=== PATIENT | female | born 1945 | race Two or more races ===

== ENCOUNTER → 2023-05-07 | Outpatient (CLI) | payer OTHER ==
[~2023-05-07] MED LIST: AZIT1POW PO; METH4PAK PO
[2023-05-07 09:26] LABS: Basophils # (auto) 0 10 ^3/uL (0-0.2); Basophils % (auto) 0.6 % (0.0-2.0); Eosinophils # (auto) 0.1 10 ^3/uL (0-0.8); Eosinophils % (auto) 2.2 % (0.0-7.0); Hematocrit 42.8 % (36.0-46.0); Hemoglobin 14.1 g/dL (12.2-16.2); Lymphocytes % (auto) 24.4 % (10.0-50.0); Mean Corpuscular Hemoglobin 30.6 pg (28.0-32.0); Mean Corpuscular Volume 92.6 fL (80.0-100.0); Monocytes # (auto) 0.3 10 ^3/uL (0-1.3); Monocytes % (auto) 8.1 % (0.0-12.0); Neutrophils # (auto) 2.6 10 ^3/uL (1.6-8.6); Neutrophils % (auto) 64.7 % (37.0-80.0); Nucleated Red Blood Cells % 0.1 %; Red Blood Cells 4.63 10^6/uL (4.0-5.20); Red Cell Distribution Width 15.5 % (11.8-14.3)
[2023-05-07 10:06] LABS: Alanine Aminotransferase 14 U/L (7-40); Alkaline Phosphatase 81 U/L (46-116); Aspartate Aminotransferase 13 U/L (13-40); BUN/Creatinine Ratio 15.5 (10.0-20.0); Blood Urea Nitrogen 13 mg/dL (9-23); CRP High Sensitivity 0.04 mg/dL (<1.0); Calcium 9.8 mg/dL (8.5-10.1); Carbon Dioxide 31 mmol/L (20-30); Glucose 99 mg/dL (74-106); LDL Cholesterol 119 mg/dL (< 100); Triglycerides 118 mg/dL (< 150)
[2023-05-07 10:07] LABS: Albumin 4.5 g/dL (3.2-4.8); Cholesterol 178 mg/dL (< 200); HDL Cholesterol 51 mg/dL (40-59)
[2023-05-07 10:17] LABS: Erythrocyte Sedimentation Rate 7 mm/hr (0-20)
[2023-05-07 10:42] LABS: Anion Gap 5 (5-15); Chloride 109 mmol/L (98-107); Sodium 145 mmol/L (136-145)
== END | disposition home or self-care (01) ==
LOC: LAB 09:04
PROVIDERS: ATTEND Internal Medicine
DX: I10 Essential (primary) hypertension (principal); R13.11 Dysphagia, oral phase; E03.9 Hypothyroidism, unspecified; M34.1 CR(E)ST syndrome; M05.79 Rheumatoid arthritis with rheumatoid factor of multiple sites without organ or systems involvement; Z79.899 Other long term (current) drug therapy
CPT/HCPCS: 36415; 80053; 80061; 84443; 85025; 85652; 86141

== ENCOUNTER → 2023-10-14 | Outpatient (CLI) | payer OTHER ==
[2023-10-14 10:01] LABS: Basophils # (auto) 0 10 ^3/uL (0-0.2); Basophils % (auto) 0.6 % (0.0-2.0); Eosinophils # (auto) 0.1 10 ^3/uL (0-0.8); Eosinophils % (auto) 2.4 % (0.0-7.0); Hematocrit 41.8 % (36.0-46.0); Hemoglobin 13.6 g/dL (12.2-16.2); Lymphocytes % (auto) 23.4 % (10.0-50.0); Mean Corpuscular Hemoglobin 29.6 pg (28.0-32.0); Mean Corpuscular Hgb Conc. 32.5 g/dL (32.0-36.0); Mean Corpuscular Volume 90.9 fL (80.0-100.0); Monocytes # (auto) 0.4 10 ^3/uL (0-1.3); Monocytes % (auto) 9.9 % (0.0-12.0); Neutrophils # (auto) 2.7 10 ^3/uL (1.6-8.6); Neutrophils % (auto) 63.7 % (37.0-80.0); Nucleated Red Blood Cells % 0.2 %; Red Cell Distribution Width 15.4 % (11.8-14.3); White Blood Cell 4.2 10^3/uL (4.4-10.8)
[2023-10-14 10:22] LABS: Alanine Aminotransferase 15 U/L (7-40); Albumin 4.3 g/dL (3.2-4.8); Alkaline Phosphatase 94 U/L (46-116); Anion Gap 6 (5-15); Aspartate Aminotransferase 17 U/L (13-40); BUN/Creatinine Ratio 12.5 (10.0-20.0); Blood Urea Nitrogen 10 mg/dL (9-23); CRP High Sensitivity 0.06 mg/dL (<1.0); Calcium 9.7 mg/dL (8.5-10.1); Carbon Dioxide 30 mmol/L (20-30); Chloride 109 mmol/L (98-107); Glucose 86 mg/dL (74-106); Potassium 3.8 mmol/L (3.5-5.1); Sodium 145 mmol/L (136-145)
[2023-10-14 10:23] LABS: Bilirubin, Total 0.8 mg/dL (0.2-1.0); Total Protein 6.7 g/dL (5.7-8.2)
[2023-10-14 10:50] LABS: Erythrocyte Sedimentation Rate 8 mm/hr (0-20)
== END | disposition home or self-care (01) ==
LOC: LAB 09:24
PROVIDERS: ATTEND Internal Medicine Rheumatology
DX: M05.29 Rheumatoid vasculitis with rheumatoid arthritis of multiple sites (principal); Z79.899 Other long term (current) drug therapy
CPT/HCPCS: 36415; 80053; 85025; 85652; 86141

== ENCOUNTER → 2023-10-17 | Outpatient (CLI) | payer OTHER ==
[2023-10-17 14:15] LABS: Urine Bacteria NONE SEEN /hpf (None Seen); Urine Blood 2+ /uL (Negative); Urine Clarity CLOUDY (Clear); Urine Color Brown (Yellow); Urine Hyaline Cast FEW /lpf (0 - 2); Urine Mucus FEW (None Seen); Urine Protein, UAD 2+ (Negative); Urine Specific Gravity 1.017 (1.001-1.035); Urine WBC 574 /hpf (0 - 5); Urine WBC Clumps PRESENT /hpf (None Seen); Urine pH 5.5 (5.0-8.0)
== END | disposition home or self-care (01) ==
LOC: LAB 13:49
PROVIDERS: ATTEND Internal Medicine
DX: N39.0 Urinary tract infection, site not specified (principal)
CPT/HCPCS: 81001; 87086

== ENCOUNTER → 2024-01-02 | Outpatient (CLI) | payer OTHER ==
[2024-01-02 09:51] LABS: Basophils # (auto) 0 10 ^3/uL (0-0.2); Basophils % (auto) 0.7 % (0.0-2.0); Eosinophils # (auto) 0.1 10 ^3/uL (0-0.8); Eosinophils % (auto) 2.2 % (0.0-7.0); Hematocrit 41.1 % (36.0-46.0); Hemoglobin 13.3 g/dL (12.2-16.2); Lymphocytes # (auto) 1.1 10 ^3/uL (0.4-5.4); Lymphocytes % (auto) 21.8 % (10.0-50.0); Mean Corpuscular Hemoglobin 29.5 pg (28.0-32.0); Mean Corpuscular Hgb Conc. 32.3 g/dL (32.0-36.0); Mean Corpuscular Volume 91.3 fL (80.0-100.0); Monocytes # (auto) 0.4 10 ^3/uL (0-1.3); Monocytes % (auto) 8.9 % (0.0-12.0); Neutrophils # (auto) 3.3 10 ^3/uL (1.6-8.6); Neutrophils % (auto) 66.4 % (37.0-80.0); Nucleated Red Blood Cells % 0.1 %; White Blood Cell 4.9 10^3/uL (4.4-10.8)
[2024-01-02 10:07] LABS: Alanine Aminotransferase 14 U/L (7-40); Albumin 4.4 g/dL (3.2-4.8); Alkaline Phosphatase 109 U/L (46-116); Anion Gap 3 (5-15); Aspartate Aminotransferase 15 U/L (13-40); BUN/Creatinine Ratio 14.4 (10.0-20.0); Bilirubin, Total 0.9 mg/dL (0.2-1.0); Blood Urea Nitrogen 13 mg/dL (9-23); CRP High Sensitivity 0.07 mg/dL (<1.0); Calcium 9.9 mg/dL (8.5-10.1); Carbon Dioxide 31 mmol/L (20-30); Chloride 109 mmol/L (98-107); Glucose 91 mg/dL (74-106); Potassium 4.5 mmol/L (3.5-5.1); Sodium 143 mmol/L (136-145); Total Protein 6.6 g/dL (5.7-8.2)
[2024-01-02 10:35] LABS: Erythrocyte Sedimentation Rate 7 mm/hr (0-20)
== END | disposition home or self-care (01) ==
LOC: LAB 09:25
PROVIDERS: ATTEND Internal Medicine Rheumatology
DX: M05.79 Rheumatoid arthritis with rheumatoid factor of multiple sites without organ or systems involvement (principal); Z79.899 Other long term (current) drug therapy
CPT/HCPCS: 36415; 80053; 85025; 85652; 86141

== ENCOUNTER → 2024-03-27 | Outpatient (CLI) | payer OTHER ==
[2024-03-27 09:35] LABS: Basophils # (auto) 0 10 ^3/uL (0-0.2); Basophils % (auto) 0.7 % (0.0-2.0); Eosinophils # (auto) 0.1 10 ^3/uL (0-0.8); Eosinophils % (auto) 2.8 % (0.0-7.0); Hematocrit 41.4 % (36.0-46.0); Hemoglobin 13.7 g/dL (12.2-16.2); Lymphocytes % (auto) 23.5 % (10.0-50.0); Mean Corpuscular Hemoglobin 29.9 pg (28.0-32.0); Mean Corpuscular Hgb Conc. 32.9 g/dL (32.0-36.0); Mean Corpuscular Volume 90.8 fL (80.0-100.0); Monocytes # (auto) 0.5 10 ^3/uL (0-1.3); Monocytes % (auto) 10.4 % (0.0-12.0); Neutrophils # (auto) 2.7 10 ^3/uL (1.6-8.6); Neutrophils % (auto) 62.6 % (37.0-80.0); Platelet Count (auto) 200 10^3/uL (140-450); Red Blood Cells 4.56 10^6/uL (4.0-5.20); Red Cell Distribution Width 16.3 % (11.8-14.3); White Blood Cell 4.3 10^3/uL (4.4-10.8)
[2024-03-27 10:03] LABS: Urine Bacteria FEW /hpf (None Seen); Urine Blood Negative /uL (Negative); Urine Color Yellow (Yellow); Urine Mucus FEW (None Seen); Urine Protein, UAD TRACE (Negative); Urine Specific Gravity 1.023 (1.001-1.035); Urine Urobilinogen Normal (Negative); Urine WBC 11 /hpf (0 - 5); Urine pH 5.5 (5.0-9.0)
[2024-03-27 10:06] LABS: Urine Clarity Cloudy (Clear)
[2024-03-27 10:32] LABS: Alanine Aminotransferase 11 U/L (7-40); Albumin 4.4 g/dL (3.2-4.8); Alkaline Phosphatase 102 U/L (46-116); Anion Gap 6 (5-15); Aspartate Aminotransferase 11 U/L (13-40); BUN/Creatinine Ratio 17.5 (10.0-20.0); Bilirubin, Total 1.1 mg/dL (0.2-1.0); Blood Urea Nitrogen 14 mg/dL (9-23); Calcium 10.1 mg/dL (8.7-10.4); Carbon Dioxide 29 mmol/L (20-30); Chloride 110 mmol/L (98-107); Cholesterol 164 mg/dL (< 200); Glucose 92 mg/dL (74-106); LDL Cholesterol 106 mg/dL (< 100); Potassium 4.1 mmol/L (3.5-5.1); Sodium 145 mmol/L (136-145); Total Protein 6.5 g/dL (5.7-8.2); Triglycerides 114 mg/dL (< 150)
[2024-03-27 10:38] LABS: HDL Cholesterol 43 mg/dL (40-59)
== END | disposition home or self-care (01) ==
LOC: LAB 09:05
PROVIDERS: ATTEND Internal Medicine
DX: I10 Essential (primary) hypertension (principal); E78.00 Pure hypercholesterolemia, unspecified; E03.9 Hypothyroidism, unspecified; K21.9 Gastro-esophageal reflux disease without esophagitis; N39.0 Urinary tract infection, site not specified
CPT/HCPCS: 36415; 80053; 80061; 81001; 84443; 85025; 87086

== ENCOUNTER → 2024-05-12 | Outpatient (CLI) | payer OTHER ==
[2024-05-12 09:40] LABS: Basophils # (auto) 0 10 ^3/uL (0-0.2); Basophils % (auto) 0.6 % (0.0-2.0); Eosinophils # (auto) 0.1 10 ^3/uL (0-0.8); Eosinophils % (auto) 2.9 % (0.0-7.0); Hematocrit 41.4 % (36.0-46.0); Hemoglobin 14.2 g/dL (12.2-16.2); Lymphocytes # (auto) 1.1 10 ^3/uL (0.4-5.4); Lymphocytes % (auto) 25.3 % (10.0-50.0); Mean Corpuscular Hemoglobin 31.2 pg (28.0-32.0); Mean Corpuscular Hgb Conc. 34.3 g/dL (32.0-36.0); Mean Corpuscular Volume 91.1 fL (80.0-100.0); Monocytes # (auto) 0.5 10 ^3/uL (0-1.3); Monocytes % (auto) 11.7 % (0.0-12.0); Neutrophils # (auto) 2.5 10 ^3/uL (1.6-8.6); Neutrophils % (auto) 59.5 % (37.0-80.0); Platelet Count (auto) 174 10^3/uL (140-450); Red Blood Cells 4.55 10^6/uL (4.0-5.20); Red Cell Distribution Width 16.7 % (11.8-14.3); White Blood Cell 4.3 10^3/uL (4.4-10.8)
[2024-05-12 10:50] LABS: Alanine Aminotransferase 12 U/L (7-40); Albumin 4.4 g/dL (3.2-4.8); Alkaline Phosphatase 104 U/L (46-116); Anion Gap 6 (5-15); BUN/Creatinine Ratio 18.9 (10.0-20.0); Blood Urea Nitrogen 17 mg/dL (9-23); CRP High Sensitivity 0.06 mg/dL (<1.0); Calcium 10.2 mg/dL (8.7-10.4); Carbon Dioxide 29 mmol/L (20-30); Chloride 110 mmol/L (98-107); Glucose 93 mg/dL (74-106); Potassium 4.5 mmol/L (3.5-5.1); Sodium 145 mmol/L (136-145)
[2024-05-12 10:51] LABS: Aspartate Aminotransferase 13 U/L (13-40); Bilirubin, Total 0.9 mg/dL (0.2-1.0); Total Protein 6.7 g/dL (5.7-8.2)
== END | disposition home or self-care (01) ==
LOC: LAB 09:19
PROVIDERS: ATTEND Internal Medicine Rheumatology
DX: M05.79 Rheumatoid arthritis with rheumatoid factor of multiple sites without organ or systems involvement (principal); M34.9 Systemic sclerosis, unspecified
CPT/HCPCS: 36415; 80053; 85025; 86141

== ENCOUNTER 2024-06-17 08:55 | Day surgery (SDC) | payer OTHER ==
[2024-06-15 09:59] LABS: Basophils # (auto) 0 10 ^3/uL (0-0.2); Basophils % (auto) 0.6 % (0.0-2.0); Eosinophils # (auto) 0.1 10 ^3/uL (0-0.8); Eosinophils % (auto) 2.2 % (0.0-7.0); Hematocrit 41.3 % (36.0-46.0); Hemoglobin 13.6 g/dL (12.2-16.2); Lymphocytes % (auto) 24.4 % (10.0-50.0); Mean Corpuscular Hgb Conc. 32.9 g/dL (32.0-36.0); Mean Corpuscular Volume 91.2 fL (80.0-100.0); Monocytes # (auto) 0.5 10 ^3/uL (0-1.3); Monocytes % (auto) 12.3 % (0.0-12.0); Neutrophils # (auto) 2.4 10 ^3/uL (1.6-8.6); Neutrophils % (auto) 60.5 % (37.0-80.0); Nucleated Red Blood Cells % 0.1 %; Platelet Count (auto) 182 10^3/uL (140-450); Red Blood Cells 4.52 10^6/uL (4.0-5.20); Red Cell Distribution Width 16.3 % (11.8-14.3); White Blood Cell 3.9 10^3/uL (4.4-10.8)
[2024-06-15 10:13] LABS: INR 1.03 (0.9-1.15); Partial Thromboplastin Time 25.2 SEC (24.5-34.5); Prothrombin Time 10.9 sec (9.3-11.8)
[2024-06-15 10:52] LABS: Alanine Aminotransferase 15 U/L (7-40); Albumin 4.3 g/dL (3.2-4.8); Alkaline Phosphatase 114 U/L (46-116); Anion Gap 7 (5-15); Aspartate Aminotransferase 13 U/L (13-40); BUN/Creatinine Ratio 20.5 (10.0-20.0); Blood Urea Nitrogen 16 mg/dL (9-23); Calcium 10.2 mg/dL (8.7-10.4); Carbon Dioxide 28 mmol/L (20-31); Chloride 109 mmol/L (98-107); Glucose 90 mg/dL (74-106); Potassium 4.4 mmol/L (3.5-5.1); Sodium 144 mmol/L (136-145)
[2024-06-15 10:53] LABS: Bilirubin, Total 0.7 mg/dL (0.2-1.0); Total Protein 6.8 g/dL (5.7-8.2)
[~2024-06-17] VITALS: Ht 162.6 cm; Wt 70.8 kg
[~2024-06-17 08:55] MED LIST changes: +AMLO1TAB22 PO; -AZIT1POW PO; +FOLI-119 PO; +LEVO100T8 PO; +METH2.5T PO; -METH4PAK PO; +PANT40TA2 PO
[2024-06-17] MEDS ORDERED: SODIUM CHLORIDE LOCK 10 ML ONE (09:12)
[2024-06-17] MEDS ORDERED: diphenhdrAMINE HCL 50 MG/1 ML VL ONE (09:13)
[2024-06-17 10:35] VITALS: PULSE 77; RESP 20; O2SAT 100
[2024-06-17] MEDS: LIDOCAINE VISCOUS 2% 15ML UD ONE (10:36)
[2024-06-17] MEDS: MIDAZOLAM HCL 5 MG/ML-1ML VIAL ONE (10:38)
[2024-06-17] MEDS: fentaNYL CITRATE 100 MCG/2 ML VL ONE (10:38)
[2024-06-17 11:07] VITALS: PULSE 72; RESP 15; TEMP 98.4; O2SAT 90
--- NOTE | 2024-06-17 11:10 | DVHOP2 ---
Operative Report DATE OF PROCEDURE: 06/17/24 INDICATIONS FOR THE PROCEDURE: DYSPHAGIA ABDOMINAL PAIN PROCEDURE PERFORMED: 1. Esophagogastroduodenoscopy and balloon dilation 2. Esophagogastroscopy and biopsy POSTOPERATIVE DIAGNOSIS: Hiatal hernia Esophagitis Esophageal stricture Gastritis INFORMED CONSENT: The risks and benefits and alternatives were explained to the patient and informed consent was obtained. PROCEDURE IN DETAIL: The patient was kept NPO after midnight. In the endoscopy room, she was given IV fentanyl 100 mcg and Versed 4 mg, titrated slowly to get her sedated. Olympus gastroscope was passed through the oropharynx into the stomach and the duodenum, and the findings were as follows. Esophagus: 1 cm hiatal herni erythematous streaks in the distal esophagus suggestive of esophagitis LA classification B Mild esophageal stricture of less than 1 cm in the distal esophagus dilated with balloon dilators 15-18 mm balloon used with good dilatation up to 18 mm Stomach: Fundus: Normal Body and antrum Erythematous streaks suggestive of gastritis in the antrum biopsies taken to ensure there is no H pylori or other pathology Pylorus normal Duodenum Normal Endoscopic impression Hiatal hernia Esophagitis biopsies taken Distal esophageal stricture dilated with balloon dilators Antral gastritis biopsies taken Suggestions Await the biopsy results Await the result of the dilatation Aggressive anti-reflux regime and see the response Repeat dilation on a p.r.n. basis Thank you for asking me to take part in the care of this pleasant patient With warm regards, STEFANIE Cherry MD Jun 17, 2024 11:10
[2024-06-17 11:40] VITALS: BP 130/69; PULSE 79; RESP 15; O2SAT 100
== END 2024-06-17 11:55 | disposition home or self-care (01) ==
LOC: GI 08:55
PROVIDERS: ATTEND Internal Medicine Gastroenterology
DX: R13.10 Dysphagia, unspecified (principal); K22.2 Esophageal obstruction; K21.00 Gastro-esophageal reflux disease with esophagitis, without bleeding; K29.50 Unspecified chronic gastritis without bleeding; K44.9 Diaphragmatic hernia without obstruction or gangrene
CPT/HCPCS: 36415; 43239; 43249; 80053; 85025; 85610; 85730; 88305; 88312; 88342; J1200; J2250; J3010; J7030; 43213; 99152; 99153

== ENCOUNTER 2024-07-16 10:25 | Inpatient (IN) | payer OTHER ==
[~2024-07-16] VITALS: Ht 162.6 cm; Wt 69.5 kg
--- NOTE | 2024-07-16 10:56 | ED.PDOC ---
SOB-HPI HPI Comments 79y F who presents to the ED for chief complaint of cough. Pt states she has been having cough, nausea, and vomiting for the past 3 days. Pt states she has had cough with associated clear phlegm and denies any associated blood in vomit. Pt has also had associated body aches and chills and pt was brought by daughter to the ED. Pt daughter denies any associated recent sick contacts or changes to diet. Pt otherwise denies chest pain, shortness of breath, diaphoresis, diarrhea, fever, headache or dizziness. Pt otherwise denies any other symptoms at this time. Pt in the ED, has noted temp of 98.4F but has 02 sat of 68% on room air with no noted current respiratory distress. Chief Complaint: cough Time Seen by MD: 10:51 Primary Care Provider: DALE Osuna notes: Medications Information Source: Patient, Emergency Med Personnel Mode of Arrival: EMS Brought in by: EMS Severity: Moderate Timing: Days Duration: Since onset Context: At Rest PE Risk Factors: None History of: None Prehospital treatment: None Modifying Factors: Nothing Associated Signs and Symptoms: Cough If cough with SOB: Productive, Clear Past Medical History PAST MEDICAL HISTORY: HTN Past Medical History (Other): CREST, RA, hiatal hernia Surgical History: Denies all surgeries VP RHEUMATOLOGY History: No Pertinent VP RHEUMATOLOGY History Family History Family History: Family hx of DM, Family hx of Cancer Social History Smoker: Non-Smoker Alcohol: Occasionally Drugs: Denies Drug Use Lives In: Home Constitutional: reports: chills, others (body aches); denies: diaphoresis, fatigue, fever, malaise, sweats, weakness EENTM: denies: blurred vision, double vision, ear bleeding, ear discharge, ear drainage, ear pain, ear ringing, eye pain, eye redness, hearing loss, mouth pain, mouth swelling, nasal discharge, nose bleeding, nose congestion, nose pain, photophobia, tearing, throat pain, throat swelling, voice changes, others Respiratory: reports: cough; denies: hemoptysis, orthopnea, SOB at rest, shortness of breath, SOB with excertion, stridor, wheezing, others Cardiovascular: denies: chest pain, dizzy spells, diaphoresis, Dyspnea on exertion, edema, irregular heart beat, left arm pain, lightheadedness, palpitations, PND, syncope, others Gastrointestinal: reports: nausea, vomiting; denies: abdomen distended, abdominal pain, blood streaked bowels, constipated, diarrhea, dysphagia, difficulty swallowing, hematemesis, melena, poor appetite, poor fluid intake, rectal bleeding, rectal pain, others Genitourinary: denies: abnormal vagina bleeding, burning, dyspareunia, dysuria, flank pain, frequency, hematuria, incontinence, pain, , vagina discharge, urgency, others Neurological: denies: dizziness, fainting, headache, left sided numbness, left sided weakness, numbness, paresthesia, pre-existing deficit, right sided numbness, right sided weakness, seizure, speech problems, tingling, tremors, weakness, others Musculoskeletal: denies: back pain, gout, joint pain, joint swelling, muscle pain, muscle stiffness, neck pain, others Integumetry: denies: bruises, change in color, change in hair/nails, dryness, laceration, lesions, lumps, rash, wounds, others Allergic/Immunocompromised: denies: Difficulty Healing, Frequent Infections, Hives, Itching, others Hematologic/Lymphatic: denies: anemia, blood clots, easy bleeding, easy bruising, swollen glands, others Endocrine: denies: excessive hunger, excessive sweating, excessive thirst, excessive urination, flushing, intolerance to cold, intolerance to heat, unexplained weight gain, unexplained weight loss, others Psychiatric: denies: anxiety, bipolar disorder, depression, hopeless, panic disorder, schizophrenia, sleepless, suicidal, others All Other Systems: Reviewed and Negative Physical Exam General Appearance: Moderate Distress HEENT: Normal ENT Inspection, Pharynx Normal, TMs Normal Neck: Full Range of Motion, Non-Tender, Normal, Normal Inspection Respiratory: Chest Non-Tender, Lungs Clear, No Accessory Muscle Use, No Respiratory Distress, Normal Breath Sounds Cardiovascular: No Edema, No JVD, No Murmur, No Gallop, Normal Peripheral Pulses, Regular Rate/Rhythm Breast Exam: Deferred Gastrointestinal: No Organomegaly, Non Tender, No Pulsatile Mass, Normal Bowel Sounds, Soft Genitalia: Deferred Pelvic: Deferred Rectal: Deferred Extremities: No calf tenderness, Normal capillary refill, No pedal edema Musculoskeletal : Apperance: Normal Neurologic: Alert, four roll calender operator II-XII nml as Tested, Motor Weakness, Normal Affect, Normal Mood, No Sensory Deficits Cerebellar Function: Unable to Test Reflexes: Normal Skin: Dry, Pallor, Warm Lymphatic: No Adenopathy Was a procedure done? Was a procedure done?: No Differential Dx Differential Diagnosis: Bronchitis, Pneumonia, Pulmonary Embolism Comments COVID, Influenza A and B, X-Ray, Labs, Meds, VS Vital Signs Date Time Temp Pulse Resp B/P (MAP) Pulse Ox O2 Delivery O2 Flow Rate FiO2 07/16/24 11:07 98.4 89 18 99/62 (74) 91 Lab Test 07/16/24 12:46 07/16/24 11:30 07/16/24 11:00 07/16/24 10:45 Range/Units Lactic Acid Level Pending 2.2 *H 0.4-2.0 mmol/L Troponin I High Sensitivity Pending 23 </=34 ng/L Urine Color Yellow Yellow Urine Clarity Hazy H Clear Urine pH 5.5 5.0-9.0 Urine Specific [place] 1.019 1.001-1.035 Urine Protein 1+ H Negative Urine Ketones Negative Negative Urine Blood Trace H Negative /uL Urine Nitrite Negative Negative Urine Bilirubin Negative Negative Urine Urobilinogen Normal Negative mg/dL Urine Leukocyte Esterase 1+ Negative /uL Urine RBC 2 0 - 4 /hpf Urine WBC 11 0 - 5 /hpf Urine Squamous Epithelial Cells Mod <5 /hpf Urine Bacteria Few H None Seen /hpf Urine Hyaline Casts Many 0 - 2 /lpf Urine Granular Casts Few 0 /lpf Urine Mucus Few None Seen Urine Glucose Normal Normal mg/dL White Blood Count 4.0 L 4.4-10.8 10^3/uL Red Blood Count 5.18 4.0-5.20 10^6/uL Hemoglobin 15.4 12.2-16.2 g/dL Hematocrit 46.6 H 36.0-46.0 % Mean Corpuscular Volume 90.0 80.0-100.0 fL Mean Corpuscular Hemoglobin 29.8 28.0-32.0 pg Mean Corpuscular Hemoglobin Concent 33.1 32.0-36.0 g/dL Red Cell Distribution Width 16.0 H 11.8-14.3 % Platelet Count 138 L 140-450 10^3/uL Mean Platelet Volume 9.1 6.9-10.8 fL Neutrophils (%) (Auto) 67.3 37.0-80.0 % Lymphocytes (%) (Auto) 16.9 10.0-50.0 % Monocytes (%) (Auto) 15.1 H 0.0-12.0 % Eosinophils (%) (Auto) 0.1 0.0-7.0 % Basophils (%) (Auto) 0.6 0.0-2.0 % Neutrophils # (Auto) 2.7 1.6-8.6 10 ^3/uL Lymphocytes # (Auto) 0.7 0.4-5.4 10 ^3/uL Monocytes # (Auto) 0.6 0-1.3 10 ^3/uL Eosinophils # (Auto) 0 0-0.8 10 ^3/uL Basophils # (Auto) 0 0-0.2 10 ^3/uL Nucleated Red Blood Cells 0.2 % D-Dimer, Quantitative 1.14 H 0.0-0.49 mg/L FEU Sodium Level 142 136-145 mmol/L Potassium Level 3.3 L 3.5-5.1 mmol/L Chloride Level 104 98-107 mmol/L Carbon Dioxide Level 27 20-31 mmol/L Anion Gap 11 5-15 Blood Urea Nitrogen 15 9-23 mg/dL Creatinine 1.03 H 0.550-1.02 mg/dL Glomerular Filtration Rate Calc 55 >90 mL/min BUN/Creatinine Ratio 14.6 10.0-20.0 Serum Glucose 93 74-106 mg/dL Calcium Level 9.7 8.7-10.4 mg/dL Influenza Type A Antigen Pending Influenza Type B Antigen Pending SARS-CoV-2 Antigen (Rapid) Negative NEGATIVE Current Medications Medications (Trade) Dose Ordered Sig/Lizbeth Route Start Time Stop Time Status Last Admin Sodium Chloride 500 ml @ 500 mls/hr Q1H ONCE IV 07/16/24 10:45 07/16/24 11:44 DC 07/16/24 11:13 Technique: Single frontal view of the chest was obtained IMPRESSION: Mild interstitial prominence likely represents bronchovascular crowding in the setting of low lung volumes. It is difficult to exclude mild superimposed atelectasis or pneumonia in the right lower lung. Consider follow-up radiographs if symptoms persist. IV Hep-Lock was established. Blood cultures x2 were drawn. The COVID test is negative. The patient remained hypoxic so was placed on 4 L of nasal cannula oxygen After the blood cultures were drawn, the patient was given Zithromax 1 g IV piggyback We did do another COVID test as an in-house test as we still suspect that the patient may have COVID The D-dimer is elevated at 1.14 The patient will have a CT scan of the chest to rule out PE The urine test shows a positive UTI The lactic acid level is 2.2 At this time, the patient will be admitted to the hospitalist There was critical Care secondary to bedside management as well as interpretation of labs Images Reviewed?: Images reviewed and evaluated by me Time of 1ST Reevaluation: 11:20 Reevaluation 1ST: Unchanged Time of 2ND Reevaluation: 13:05 Reevaluation 2ND: Unchanged Patient Education/Counseling: Diagnosis, Treatment, Prognosis Family Education/Counseling: Diagnosis, Treatment, Prognosis Departure 1 Departure Time of Disposition: 13:04 Impression: Primary Impression: Acute respiratory failure Qualified Codes: J96.01 - Acute respiratory failure with hypoxia Additional Impressions: Generalized weakness Bilateral pneumonia Qualified Codes: J18.9 - Pneumonia, unspecified organism Disposition: ADMITTED INPATIENT Admit to: [facility] Condition: Fair Critical Care Note Critical Care Time?: Yes (35 min-critical care time only) Stability Stability form required: Yes Unstable for transfer: Telemetry monitoring (Telemetry monitoring required), ED Physician Assesment (Clinical assesment) Heart Score Heart Score: Heart Score Response (Comments) Value History Slightly Suspicious 0 EKG Normal 0 Age >65 2 Risk Factors 1 or 2 risk factors 1 Troponin Normal limit 0 Total 3 I personally scribed for ERMA NEVILLE MD ([email or web address]) on 07/16/24 at 10:56. Electronically submitted by Vaishnavi Prajapati ([email or web address]). I personally scribed for ERMA NEVILLE MD ([email or web address]) on 07/16/24 at 11:50. Electronically submitted by Vaishnavi Prajapati ([email or web address]). ERMA NEVILLE MD Jul 16, 2024 10:56
[2024-07-16 11:07] LABS: Basophils # (auto) 0 10 ^3/uL (0-0.2); Basophils % (auto) 0.6 % (0.0-2.0); Eosinophils # (auto) 0 10 ^3/uL (0-0.8); Eosinophils % (auto) 0.1 % (0.0-7.0); Hematocrit 46.6 % (36.0-46.0); Hemoglobin 15.4 g/dL (12.2-16.2); Lymphocytes # (auto) 0.7 10 ^3/uL (0.4-5.4); Lymphocytes % (auto) 16.9 % (10.0-50.0); Mean Corpuscular Hemoglobin 29.8 pg (28.0-32.0); Mean Corpuscular Hgb Conc. 33.1 g/dL (32.0-36.0); Monocytes # (auto) 0.6 10 ^3/uL (0-1.3); Monocytes % (auto) 15.1 % (0.0-12.0); Neutrophils # (auto) 2.7 10 ^3/uL (1.6-8.6); Neutrophils % (auto) 67.3 % (37.0-80.0); Nucleated Red Blood Cells % 0.2 %; Platelet Count (auto) 138 10^3/uL (140-450); Red Blood Cells 5.18 10^6/uL (4.0-5.20)
[2024-07-16 11:11] VITALS: PULSE 69; RESP 10; O2SAT 100
[2024-07-16] MEDS: SODIUM CHLORIDE 0.9% 500 ML IV ONE (11:13)
[2024-07-16 11:15] LABS: Chloride 104 mmol/L (98-107); Sodium 142 mmol/L (136-145)
[2024-07-16 11:16] LABS: Calcium 9.7 mg/dL (8.7-10.4); Carbon Dioxide 27 mmol/L (20-31)
[2024-07-16 11:21] LABS: BUN/Creatinine Ratio 14.6 (10.0-20.0); Blood Urea Nitrogen 15 mg/dL (9-23); Glucose 93 mg/dL (74-106)
--- NOTE | 2024-07-16 11:24 | DVH ---
CHEST RADIOGRAPH Indication: low oxygen Technique: Single frontal view of the chest was obtained COMPARISON: Chest x-ray on 02/04/23 FINDINGS: Lines and Tubes: None Lungs: Mild interstitial prominence in the setting of low lung volumes, particularly in the right low er lung. Pleura: No effusion. No pneumothorax. Cardiomediastinal contours: Unremarkable Bones: Mild degenerative changes of the shoulders, [id number]. IMPRESSION: Mild interstitial prominence likely represents bronchovascular crowding in the setting of low lung vo lumes. It is difficult to exclude mild superimposed atelectasis or pneumonia in the right lower lung . Consider follow-up radiographs if symptoms persist.
[2024-07-16 11:26] LABS: Potassium 3.3 mmol/L (3.5-5.1)
[2024-07-16 11:27] LABS: Anion Gap 11 (5-15)
[2024-07-16 11:35] LABS: COVID19 ANTIGEN SOFIA FIA NEGATIVE (NEGATIVE)
[2024-07-16 11:38] LABS: Lactic Acid w/Reflex 2.2 mmol/L (0.4-2.0)
[2024-07-16 12:53] LABS: Urine Bacteria FEW /hpf (None Seen); Urine Blood TRACE /uL (Negative); Urine Clarity Hazy (Clear); Urine Color Yellow (Yellow); Urine Hyaline Cast MANY /lpf (0 - 2); Urine Mucus FEW (None Seen); Urine Protein, UAD 1+ (Negative); Urine Specific Gravity 1.019 (1.001-1.035); Urine Urobilinogen Normal (Negative); Urine WBC 11 /hpf (0 - 5); Urine pH 5.5 (5.0-9.0)
[2024-07-16] MEDS ORDERED: DOCUSATE SOD 100 MG CAP PO PRN (13:00)
[2024-07-16] MEDS ORDERED: LORazepam 0.5 MG TAB PO PRN (13:00)
[2024-07-16] MEDS ORDERED: IPRATROPIUM BROM 0.5 MG/2.5ML INH SOL NEB PRN (13:00)
[2024-07-16] MEDS ORDERED: HYDROcodone-ACET 5/325MG TAB PO PRN (13:00)
[2024-07-16] MEDS ORDERED: ALBUTEROL SULF 2.5 MG/0.5ML(0.5%) NEB SOLN NEB PRN (13:00)
[2024-07-16] MEDS ORDERED: ACETAMINOPHEN 325 MG TAB PO PRN (13:00)
[2024-07-16] MEDS ORDERED: ONDANSETRON HCL 4 MG/2 ML VIAL IV PRN (13:00)
--- NOTE | 2024-07-16 13:04 | DVHHP2 ---
History of Present Illness Reason for Visit: shortness of breath History of Present Illness 79-year-old with a past medical history of hypertension RA hiatal hernia and crest syndrome comes to the ED with complaints of cough nausea vomiting for the past 3 days patient states that she has been having a lot more phlegm buildup an d even reports that she had an episode where the phlegm has been more change in color patient denies having history of COPD however does state feeling worse including having body aches fevers and chills patient was noted to be in respiratory distress initially in the ED and placed on oxygen supplementation and recommended for admission for suspected respiratory associated disease Cardiovascular: HTN Review of Systems Constitutional: Yes: Weakness Eyes: No: Pain, Vision change, Conjunctivae inflammation, Eyelid inflammation, Other, Redness ENT: No: Ear pain, Ear discharge, Nose pain, Nose discharge, Nose congestion, Mouth pain, Mouth swelling, Throat pain, Throat swelling, Other Respiratory: No: Cough, Dry, Shortness of breath, SOB with excertion, Wheezing, Hemoptysis, Pleuritic Pain, Sputum, Wheezing, Other Cardiovascular: No: Chest Pain, Palpitations, Orthopnea, Paroxysmal Noc. Dyspnea, Edema, Lt Headedness, Other Gastrointestinal: No: Nausea, Vomiting, Abdominal Pain, Diarrhea, Constipation, Melena, Hematochezia, Other Genitourinary: No Dysuria, No Frequency, No Incontinence, No Hematuria, No Retention, No Other Musculoskeletal: No: other, neck pain, shoulder pain, arm pain, back pain, hand pain, leg pain, foot pain Skin: No: Rash, Lesions, Jaundice, Bruising, Other Neurological: No: Weakness, Numbness, Incoordination, Change in speech, Confusion, Seizures, Other Allergies: Coded Allergies: No Known Drug Allergy (Verified Allergy, Unknown, 06/15/24) Exam Vital Signs Vital Signs Date Time Temp Pulse Resp B/P (MAP) Pulse Ox O2 Delivery O2 Flow Rate FiO2 07/16/24 11:07 98.4 89 18 99/62 (74) 91 General Appearance: Alert, Oriented X3 HEENT: Atraumatic, PERRLA Respiratory: Clear to auscultation, Normal air movement Cardiovascular: Regular rate, Normal S1 Abdominal: Normal bowel sounds, Soft Extremities: No clubbing, No cyanosis Skin: No rashes, No breakdown Neuro: Normal gait, Normal speech Psych/Mental Status: Mood NL Labs/Xrays Labs Test 07/16/24 12:46 07/16/24 11:30 07/16/24 11:00 07/16/24 10:45 Range/Units Urine Color Yellow Yellow Urine Clarity Hazy H Clear Urine pH 5.5 5.0-9.0 Urine Specific [place] 1.019 1.001-1.035 Urine Protein 1+ H Negative Urine Ketones Negative Negative Urine Blood Trace H Negative /uL Urine Nitrite Negative Negative Urine Bilirubin Negative Negative Urine Urobilinogen Normal Negative mg/dL Urine Leukocyte Esterase 1+ Negative /uL Urine RBC 2 0 - 4 /hpf Urine WBC 11 0 - 5 /hpf Urine Squamous Epithelial Cells Mod <5 /hpf Urine Bacteria Few H None Seen /hpf Urine Hyaline Casts Many 0 - 2 /lpf Urine Granular Casts Few 0 /lpf Urine Mucus Few None Seen Urine Glucose Normal Normal mg/dL White Blood Count 4.0 L 4.4-10.8 10^3/uL Red Blood Count 5.18 4.0-5.20 10^6/uL Hemoglobin 15.4 12.2-16.2 g/dL Hematocrit 46.6 H 36.0-46.0 % Mean Corpuscular Volume 90.0 80.0-100.0 fL Mean Corpuscular Hemoglobin 29.8 28.0-32.0 pg Mean Corpuscular Hemoglobin Concent 33.1 32.0-36.0 g/dL Red Cell Distribution Width 16.0 H 11.8-14.3 % Platelet Count 138 L 140-450 10^3/uL Mean Platelet Volume 9.1 6.9-10.8 fL Neutrophils (%) (Auto) 67.3 37.0-80.0 % Lymphocytes (%) (Auto) 16.9 10.0-50.0 % Monocytes (%) (Auto) 15.1 H 0.0-12.0 % Eosinophils (%) (Auto) 0.1 0.0-7.0 % Basophils (%) (Auto) 0.6 0.0-2.0 % Neutrophils # (Auto) 2.7 1.6-8.6 10 ^3/uL Lymphocytes # (Auto) 0.7 0.4-5.4 10 ^3/uL Monocytes # (Auto) 0.6 0-1.3 10 ^3/uL Eosinophils # (Auto) 0 0-0.8 10 ^3/uL Basophils # (Auto) 0 0-0.2 10 ^3/uL Nucleated Red Blood Cells 0.2 % D-Dimer, Quantitative 1.14 H 0.0-0.49 mg/L FEU Sodium Level 142 136-145 mmol/L Potassium Level 3.3 L 3.5-5.1 mmol/L Chloride Level 104 98-107 mmol/L Carbon Dioxide Level 27 20-31 mmol/L Anion Gap 11 5-15 Blood Urea Nitrogen 15 9-23 mg/dL Creatinine 1.03 H 0.550-1.02 mg/dL Glomerular Filtration Rate Calc 55 >90 mL/min BUN/Creatinine Ratio 14.6 10.0-20.0 Serum Glucose 93 74-106 mg/dL Calcium Level 9.7 8.7-10.4 mg/dL SARS-CoV-2 Antigen (Rapid) Negative NEGATIVE Assessment/Plan Assessment/Plan Admit to same day surgery center Suspected pneumonia P.r.n. breathing treatments IV antibiotics Patient with elevated lactate COVID [place] Flu swabs to be done We will treat as acute community-acquired pneumonia IV antibiotics P.o. antibiotics P.r.n. breathing treatments Possible bronchitis and inflammation low-dose steroids Plan discussed with: Patient My Orders Orders - TAHIR GUZMAN MD Procedure Category Date Status Time Ceftriaxone Ivpb PHA 07/17/24 Transmitted Rocephin 10:00 Azithromycin Tablet PHA 07/17/24 Transmitted (Zithromax Tablet) 10:00 Albuterol Medneb PHA 07/16/24 Transmitted (Ventolin Medneb) 13:00 Ipratropium Medneb PHA 07/16/24 Transmitted (Atrovent Medneb) 13:00 Med Neb Initial RT 07/16/24 Transmitted Treatment 12:49 Admit ADMIT 07/16/24 Transmitted 12:49 Code Status CODE 07/16/24 Transmitted 12:49 Vital Signs RAJIV 07/16/24 Transmitted 12:49 Review Orders With RAJIV 07/16/24 Transmitted Adm. 12:49 Consistent DIET 07/16/24 Transmitted Carb(Ccho)Diabetes Lunch Lorazepam Tablet PHA 07/16/24 Transmitted (Ativan Tablet) 13:00 Docusate Sodium PHA 07/16/24 Transmitted Capsule (Colace 13:00 Acetaminophen Tablet PHA 07/16/24 Transmitted (Tylenol Tablet) 13:00 Notify Of Changes [facility] 07/16/24 Transmitted From Base 12:49 Advance Directive RAJIV 07/16/24 Transmitted 12:49 Basic Metabolic Panel LAB 07/17/24 Verified 04:00 Complete Blood Count LAB 07/17/24 Verified 04:00 Patient Condition ORDERS 07/16/24 Transmitted 12:49 Allergies RAJIV 07/16/24 Transmitted 12:49 Hydrocodone-Acet PHA 07/16/24 Transmitted 5/325mg Tab ([place] 13:00 Ondansetron Hcl PHA 07/16/24 Transmitted (Zofran) 13:00 Notify Md Of Changes [facility] 07/16/24 Transmitted From Base 12:49 Oxygen By Nasal RT 07/16/24 Transmitted Cannula 12:49 Rapid Influenza A&B LAB 07/16/24 Transmitted 12:49 Problem List: (1) PNA (pneumonia) (2) Cough Date of Service: Jul 16, 2024 Billing Provider: TAHIR GUZMAN MD Common Visit Codes: [id number] INP/OBS CARE (HIGH) TAHIR GUZMAN MD Jul 16, 2024 13:04
[2024-07-16] MEDS: AZITHROMYCIN 500MG/ 250ML 250 ML IV ONE (13:07)
[2024-07-16 13:40] LABS: Rapid Influenza B Negative (Negative)
[2024-07-16 13:51] LABS: Rapid Influenza A Positive (Negative)
[2024-07-16 14:02] VITALS: O2SAT 99
[2024-07-16] MEDS: OSELTAMIVIR 75 MG CAP PO ONE (14:43)
[2024-07-16 15:01] VITALS: BP 115/50; PULSE 66; RESP 19; O2SAT 99
[2024-07-16] MEDS: IOHEXOL 350 MG/ML 100ML IJ ONE (15:53)
--- NOTE | 2024-07-16 16:32 | DVH ---
Procedure: CT CT ANGIO CHEST CONTRAST Reason for study/Clinical History: CP Comparison Study: None available at time of dictation. Exam Date: 07/16/2024 03:50 PM Radiation Dose Information: CT Dose: CTDI volume is 17.76 mGy. Dose-length product is 335.1 mGy*cm Contrast: Type of contrast: Omnipaque 350 Contrast inject: 100 mL Contrast wasted:0 TECHNIQUE: After the uneventful administration of intravenous contrast intravenously, CT imaging was performed through the chest. Coronal and sagittal reformations were performed by the technologist. MIP reformatted images were obtained and evaluated. FINDINGS: Lower Neck: Visualized portions of the thyroid gland are unremarkable. Aorta and Vasculature: Normal caliber of thoracic aorta. Lymph Nodes: No enlarged intrathoracic lymph nodes. Mediastinum: Heart size is normal. There is no pericardial effusion. The esophagus is unremarkable. Lungs: No focal consolidation, pleural effusion or significant pneumothorax. No suspicious pulmonary nodule or mass. Musculoskeletal: No acute osseous abnormality. Upper abdomen: Limited portions of the upper abdomen are unremarkable. IMPRESSION: 1. No evidence of acute intrathoracic abnormality identified. 2. No findings of pulmonary emboli. 3. No findings of pulmonary artery hypertension. All CT scans at this medical facility are performed using dose modulation techniques as appropriate t o a performed exam including the following: Automated exposure control was utilized; adjustment of th e MA and/or KV according to patient size; and use of iterative reconstruction technique.
[2024-07-16 19:15] VITALS: O2SAT 100
[2024-07-16 19:35] VITALS: O2SAT 100
[2024-07-16] MEDS: OSELTAMIVIR 30 MG CAP PO SCH (22:00)
[2024-07-17] VITALS (8 sets, daily range): BP systolic 115–154; BP diastolic 43–58; PULSE 51–75; RESP 16–18; TEMP 97.7–99.3; O2SAT 92–99
[2024-07-17 06:19] LABS: Basophils # (auto) 0 10 ^3/uL (0-0.2); Basophils % (auto) 0.9 % (0.0-2.0); Eosinophils # (auto) 0 10 ^3/uL (0-0.8); Eosinophils % (auto) 0.6 % (0.0-7.0); Hematocrit 37.8 % (36.0-46.0); Lymphocytes # (auto) 0.7 10 ^3/uL (0.4-5.4); Lymphocytes % (auto) 30.1 % (10.0-50.0); Mean Corpuscular Hemoglobin 30.6 pg (28.0-32.0); Mean Corpuscular Hgb Conc. 34.3 g/dL (32.0-36.0); Mean Corpuscular Volume 89.2 fL (80.0-100.0); Monocytes # (auto) 0.4 10 ^3/uL (0-1.3); Monocytes % (auto) 17.2 % (0.0-12.0); Neutrophils # (auto) 1.3 10 ^3/uL (1.6-8.6); Neutrophils % (auto) 51.2 % (37.0-80.0); Nucleated Red Blood Cells % 0.3 %; Platelet Count (auto) 113 10^3/uL (140-450); Red Blood Cells 4.24 10^6/uL (4.0-5.20); Red Cell Distribution Width 15.7 % (11.8-14.3); White Blood Cell 2.5 10^3/uL (4.4-10.8)
[2024-07-17 06:23] LABS: Chloride 106 mmol/L (98-107); Sodium 142 mmol/L (136-145)
[2024-07-17 06:24] LABS: Anion Gap 10 (5-15); Carbon Dioxide 26 mmol/L (20-31)
[2024-07-17 06:25] LABS: Calcium 9.1 mg/dL (8.7-10.4)
[2024-07-17 06:29] LABS: Glucose 93 mg/dL (74-106)
[2024-07-17 06:30] LABS: BUN/Creatinine Ratio 14.5 (10.0-20.0); Blood Urea Nitrogen 11 mg/dL (9-23)
[2024-07-17 06:31] LABS: Potassium 3.4 mmol/L (3.5-5.1)
[2024-07-17] MEDS: cefTRIAXone 1GM/50ML D5W 50 ML IV SCH (10:30)
[2024-07-17] MEDS: POTASSIUM CHL 20 Meq TABLET PO ONE (10:31)
[2024-07-17] MEDS: AZITHROMYCIN 250 MG TAB PO SCH (10:31)
[2024-07-17] MEDS ORDERED: SUCR1TAB PO (12:39)
[2024-07-17] MEDS ORDERED: BUDE1AER5 IN (12:39)
[2024-07-17] MEDS ORDERED: MONT-8 PO (12:39)
--- NOTE | 2024-07-17 17:28 | DVHPNRES ---
Progress Note Date Seen: Jul 17, 2024 Resident Creating Document: ROBIN ESCALERA RESIDENT Medical Necessity Reason Pt with a Central, PICC or Fol: No Medical Necessity Reason Infleunza A type Pneumonia Subjective Review of Systems This is an 79-year-old female with a past medical history significant for hypertension, rheumatoid arthritis, hiatal hernia, hypertension, thyroid disease and CREST syndrome who presented to the ED with complaints of cough of 4 days duration, followed by nausea and vomiting for the past 3 days. Patient stated that she has been having lots of phlegm buildup. She even mentioned that the phlegm had a color change to more yellowish color. She admits to having fever and chills and shortness of breath prompting her coming to ED. Patient denies any history of COPD, smoking, secondary smokes. In the ED, the vitals were within normal limits, CBC showed WBC 4.0--> 2.5, hemoglobin 15.4, platelets low (138-->113); Chemistry revealed low potassium 3.3, lactic acid 2.2 ( H)--> 1.6, D-dimer 1.14 an UA is postive UTI. chest x- ray showed Mild interstitial prominence likely represents bronchovascular crowding in the setting of low lung volumes. CTA showed was negative for pulmonary emboli. 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[place]); No smoking, Alcohol Reveiw of Symptoms Constitutional: Denies fever no chills, Weak HEENT: Denies headache, ear pain, ear discharges, conjunctivitis, nasal discharge throat pain Cardiovascular: Denies chest pain, palpitation, orthopnea, PND, or pedal edema Respiratory: Cough, shortness of breath; Denies hemoptysis GI: Denies abdominal pain, nausea, vomiting, diarrhea, hematemesis, hematochezia, : Denies frequency, urgency, hematuria, Endocrine: Denies unintentional weight gain or weight loss [place]: Denies easy bruising, bleeding disorders, epistaxis Musculoskeletal: Denies joint pains, muscle aches Psych: No evidence of depression, dev, suicidal ideation Objective vital signs Vital Sign Date Time Temp Pulse Resp B/P (MAP) Pulse Ox O2 Delivery O2 Flow Rate FiO2 07/17/24 13:00 98.3 60 16 115/46 (69) 99 98.3 07/17/24 00:48 Nasal Cannula* 3 32 Total Intake and Output 07/16/24 07/16/24 07/17/24 15:00 23:00 07:00 Intake Total 500 ml 250 ml 300 ml Balance 500 ml 250 ml 300 ml medications Current Medications Medications Dose Ordered Sig/Lizbeth Route Start Time Stop Time Status Last Admin Dose Admin Ceftriaxone Sodium 50 ml @ 100 mls/hr DAILY IV 07/17/24 10:00 07/17/24 10:30 100 MLS/HR Azithromycin 500 mg DAILY PO 07/17/24 10:00 07/17/24 10:31 500 MG Albuterol 2.5 mg Q4HPRN PRN NEB 07/16/24 13:00 Ipratropium [place] 0.5 mg Q4HPRN PRN NEB 07/16/24 13:00 Lorazepam 0.5 mg Q6HP PRN PO 07/16/24 13:00 Docusate Sodium 100 mg BIDPRN PRN PO 07/16/24 13:00 Acetaminophen 650 mg Q6HP PRN PO 07/16/24 13:00 Acetaminophen/ Hydrocodone Bitart 1 tab Q4HP PRN PO 07/16/24 13:00 Ondansetron HCl 4 mg Q4HP PRN IV 07/16/24 13:00 Oseltamivir Phosphate 30 mg BID PO 07/16/24 22:00 07/20/24 22:01 07/17/24 10:32 30 MG Examination General examination- Mild respiratory distress HEENT: [place], no acute nasal discharge Chest: S1-S2 audible, rate and rhythm regular, no murmur, No pedal edema Lung: Some crackles and wheeze Abdomen: Nondistended, BS+, nontender, no organomegaly Musculoskeletal: no acute joint swelling or tenderness Extremity: No digital clubbing leg or edema Neurological: cranial nerves intact, no acute dysarthria or dysphagia Psychiatry-- Normal mood and affect Skin- no acute rash or purpura laboratory and microbiology Laboratory Tests 07/17/24 05:50 Test 07/17/24 05:50 Range/Units Serum Glucose 93 74-106 mg/dL Microbiology Date/Time Source Procedure Growth Status 07/16/24 16:30 Nasopharynx Coronavirus COVID-19 PCR (TRISHA) - Final Complete 07/16/24 11:00 Blood Blood Culture - Preliminary NO GROWTH AFTER 24 HOURS OF INCUBATION. Resulted Labs and/or images reviewed: Labs reviewed by me, Image(s) reviewed by me Problem List/Assessment/Plan Problem List/Assessment/Plan Suspected Community-acquired Pneumonia in the setting of influenza A infection --> Ceftriaxone --> Azithromycin ( QTc:406) --> Sputum culture Acute hypoxic respiratory failure due to pneumonia --> 5L per minute Oxygen -->Breathing treatment ( Albuterol 2.5mg and Ipratropium .5mg) q4hr --> Close monitoring for use accessory muscle of respiratory Leukopenia --> Likely due to Methotrexate (Home medication) -->. Monitor CBC closely Rheumatoid arthritis -->7.5 mg Methotrexate Thrombocytopenia --> Likely medication induced ( methotrexate) Influenza type A positive --> Oseltamivir Hypokalemia --> K: 3.3--> 3.4 -->plan: replaced 40mEq given Hypothyroidism --> Home medication: Levothyroxine UTI -->Ceftriaxone CIARA; most likely vasomotor nephropathy --> Cr: 1.03-->0.76 --> Monitor renal function closely COVID negative Diet: standard carbohydrate diet Goals of care discussed for 20 minutes; full code Case and plan discussed with Dr. Elizabeth Plan discussed with: Patient, Daughter, Other (Nurse) My Orders My Orders Orders - ROBIN ESCALERA RESIDENT Procedure Category Date Status Time Electrocardigram EKG 07/17/24 Logged 14:14 Communication Order ORDERS 07/17/24 Transmitted 15:18 Addendum Addendum Addendum I was physically present for the kee portions of the service provided to patient by THE RESIDENT. I have reviewed the documentation, discussed the case with resident and agree with the resident's documentation except as noted. Also the patient's clinical case was discussed with the patient's nurse. This medical document was created using an electronic medical record system with computerized dictation system. Although this document has been carefully reviewed, there might still be some phonetic and typographical errors. These areas are purely typographical due to imperfections of the software programs, and do not reflect any compromise in the patient's medical care. Late signature. Date of Service: Jul 17, 2024 Billing Provider: MIGUELANGEL ELIZABETH MD Common Visit Codes: 39981-[id number] INP/OBS CARE(HIGH) Secondary Visit Codes: 63420-[id number] CARE PLAN 30 MINUTES (20 minutes) ROBIN ESCALERA RESIDENT Jul 17, 2024 17:28 MIGUELANGEL ELIZABETH MD Jul 19, 2024 05:56
[2024-07-17 19:36] LABS: Chloride 105 mmol/L (98-107); Potassium 3.7 mmol/L (3.5-5.1); Sodium 141 mmol/L (136-145)
[2024-07-17 19:37] LABS: Anion Gap 9 (5-15); Carbon Dioxide 27 mmol/L (20-31)
[2024-07-17 19:42] LABS: BUN/Creatinine Ratio 15.7 (10.0-20.0); Blood Urea Nitrogen 13 mg/dL (9-23)
[2024-07-17 19:51] LABS: Glucose 118 mg/dL (74-106)
[2024-07-18 01:00] VITALS: BP 143/102; PULSE 67; RESP 22; TEMP 97.8; O2SAT 96
[2024-07-18 05:00] VITALS: BP 123/51; PULSE 53; RESP 20; TEMP 97.9; O2SAT 100
[2024-07-18 06:12] LABS: Basophils # (auto) 0 10 ^3/uL (0-0.2); Basophils % (auto) 0.6 % (0.0-2.0); Eosinophils # (auto) 0 10 ^3/uL (0-0.8); Eosinophils % (auto) 1.3 % (0.0-7.0); Hematocrit 41.2 % (36.0-46.0); Hemoglobin 13.8 g/dL (12.2-16.2); Lymphocytes # (auto) 0.9 10 ^3/uL (0.4-5.4); Lymphocytes % (auto) 34.3 % (10.0-50.0); Mean Corpuscular Hgb Conc. 33.5 g/dL (32.0-36.0); Mean Corpuscular Volume 89.5 fL (80.0-100.0); Monocytes # (auto) 0.4 10 ^3/uL (0-1.3); Monocytes % (auto) 15.1 % (0.0-12.0); Neutrophils # (auto) 1.2 10 ^3/uL (1.6-8.6); Neutrophils % (auto) 48.7 % (37.0-80.0); Nucleated Red Blood Cells % 0.6 %; Platelet Count (auto) 107 10^3/uL (140-450); Red Cell Distribution Width 15.8 % (11.8-14.3); White Blood Cell 2.5 10^3/uL (4.4-10.8)
[2024-07-18 09:00] VITALS: BP 117/42; PULSE 62; RESP 17; TEMP 98; O2SAT 94
[2024-07-18] MEDS ORDERED: guaiFENesin-DM 100/10mg/5ml SYR PO PRN (09:30)
--- NOTE | 2024-07-18 10:47 | ECG ---
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
[2024-07-18 13:00] VITALS: BP 129/50; PULSE 54; RESP 17; TEMP 97.9; O2SAT 54
[2024-07-18] MEDS ORDERED: DEXT1SYP9 PO (13:15)
[2024-07-18] MEDS ORDERED: TAMIF30 PO (13:15)
[2024-07-18] MEDS ORDERED: AZIT-43 PO (13:15)
[2024-07-18] MEDS ORDERED: CEFP200T15 PO (13:15)
[2024-07-18] MEDS ORDERED: ALBUAER3 IN (13:25)
--- NOTE | 2024-07-18 13:31 | DVHDSRES ---
Discharge Summary Date of Admission Resident Creating Document: MARISOL CRUZ RESIDENT Jul 16, 2024 at 12:49 Date of Discharge: Jul 18, 2024 Admitting Diagnosis Pneumonia Labs/Diagnostic Data: Laboratory Results Test 07/18/24 05:26 07/17/24 19:10 07/16/24 14:33 07/16/24 12:46 White Blood Count 2.5 10^3/uL (4.4-10.8) Red Blood Count 4.60 10^6/uL (4.0-5.20) Hemoglobin 13.8 g/dL (12.2-16.2) Hematocrit 41.2 % (36.0-46.0) Mean Corpuscular Volume 89.5 fL (80.0-100.0) Mean Corpuscular Hemoglobin 30.0 pg (28.0-32.0) Mean Corpuscular Hemoglobin Concent 33.5 g/dL (32.0-36.0) Red Cell Distribution Width 15.8 % (11.8-14.3) Platelet Count 107 10^3/uL (140-450) Mean Platelet Volume 9.5 fL (6.9-10.8) Neutrophils (%) (Auto) 48.7 % (37.0-80.0) Lymphocytes (%) (Auto) 34.3 % (10.0-50.0) Monocytes (%) (Auto) 15.1 % (0.0-12.0) Eosinophils (%) (Auto) 1.3 % (0.0-7.0) Basophils (%) (Auto) 0.6 % (0.0-2.0) Neutrophils # (Auto) 1.2 10 ^3/uL (1.6-8.6) Lymphocytes # (Auto) 0.9 10 ^3/uL (0.4-5.4) Monocytes # (Auto) 0.4 10 ^3/uL (0-1.3) Eosinophils # (Auto) 0 10 ^3/uL (0-0.8) Basophils # (Auto) 0 10 ^3/uL (0-0.2) Nucleated Red Blood Cells 0.6 % B-Type Natriuretic Peptide 111.40 pg/mL (0-100) Sodium Level 141 mmol/L (136-145) Potassium Level 3.7 mmol/L (3.5-5.1) Chloride Level 105 mmol/L (98-107) Carbon Dioxide Level 27 mmol/L (20-31) Anion Gap 9 (5-15) Blood Urea Nitrogen 13 mg/dL (9-23) Creatinine 0.83 mg/dL (0.550-1.02) Glomerular Filtration Rate Calc 71 mL/min (>90) BUN/Creatinine Ratio 15.7 (10.0-20.0) Serum Glucose 118 mg/dL (74-106) Calcium Level 10.0 mg/dL (8.7-10.4) Troponin I High Sensitivity 23 ng/L (</=34) Lactic Acid Level 1.6 mmol/L (0.4-2.0) Test 07/16/24 11:30 07/16/24 11:00 07/16/24 10:45 Urine Color Yellow (Yellow) Urine Clarity Hazy (Clear) Urine pH 5.5 (5.0-9.0) Urine Specific [place] 1.019 (1.001-1.035) Urine Protein 1+ (Negative) Urine Ketones Negative (Negative) Urine Blood Trace /uL (Negative) Urine Nitrite Negative (Negative) Urine Bilirubin Negative (Negative) Urine Urobilinogen Normal mg/dL (Negative) Urine Leukocyte Esterase 1+ /uL (Negative) Urine RBC 2 /hpf (0 - 4) Urine WBC 11 /hpf (0 - 5) Urine Squamous Epithelial Cells Mod /hpf (<5) Urine Bacteria Few /hpf (None Seen) Urine Hyaline Casts Many /lpf (0 - 2) Urine Granular Casts Few /lpf (0) Urine Mucus Few (None Seen) Urine Glucose Normal mg/dL (Normal) D-Dimer, Quantitative 1.14 mg/L FEU (0.0-0.49) Influenza Type A Antigen Positive (Negative) Influenza Type B Antigen Negative (Negative) SARS-CoV-2 Antigen (Rapid) Negative (NEGATIVE) Other Laboratory Tests 07/18/24 05:26 07/17/24 19:10 Brief Hx & Hospital Course: This is an 79-year-old female with a past medical history significant for hypertension, rheumatoid arthritis, hiatal hernia, hypertension, thyroid disease and CREST syndrome who presented to the ED with complaints of cough of 4 days duration, followed by nausea and vomiting for the past 3 days. Patient stated that she has been having lots of phlegm buildup. She even mentioned that the phlegm had a color change to more yellowish color. She admits to having fever and chills and shortness of breath prompting her coming to ED. Patient denies any history of COPD, smoking. In the ED, the vitals were within normal limits, CBC showed WBC 4.0--> 2.5, hemoglobin 15.4, platelets low (138-->113); Chemistry revealed low potassium 3.3, lactic acid 2.2 ( H)--> 1.6, D-dimer 1.14 an UA is positive UTI. chest x- ray showed Mild interstitial prominence likely represents bronchovascular crowding in the setting of low lung volumes. CTA showed was negative for pulmonary emboli. 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 She currently denies any significant chest pain, shortness of breath, lightheadedness, dizziness, abdominal pain, nausea, vomiting. She is currently tolerating diet, and ambulatory. Physical examination on the day of discharge: General: Awake, alert, comfortable appearing, in no acute distress. HEENT: Head is normocephalic and atraumatic. Pupils are equal, round, and reactive to light. Extraocular muscles are intact. No nasal discharge. No facial trauma. Intraoral exam shows moist mucous membranes with no tonsillar enlargement or exudate. Neck: Supple with no cervical lymphadenopathy No meningismus. No goiter. Heart: Regular rate without murmur, rub, or gallop. Lungs: Equal breath sounds bilaterally with no wheezing, rales, or rhonchi. There is no chest wall tenderness or instability. Abdomen: No external sign of injury. Bowel sounds are present. Abdomen is soft, nontender. No rebound, no guarding, no rigidity. There are no palpable masses. There is no flank pain on exam. Extremities: Strong peripheral pulses. There is no clubbing, no cyanosis, and no edema. Skin: No rash. Neurologic: Cranial nerves II-XII intact without motor, sensory, or cerebellar deficit, no asterixis. Discharge plan: Patient will be DC home and continue home medications as prescribed. Continue taking azithromycin, cefpodoxime, prescribed Ventolin inhaler p.r.n. Scheduled for D/C clinic follow with Dr. Lofton Counseled on lifestyle modifications, medical compliance Patient verbalized understanding and agree with DC plan, we spent over 35 minutes explaining the plan. Case and plan discussed with Dr. Elizabeth Operations or Procedures [place] [id number] Ph: [phone] DIAGNOSTIC IMAGING Diagnostic Imaging Report : [id number] Signed PATIENT: ROBINSON MEJIA ACCT: [id number] UNIT: [id number] : 1945 LOC: ER ROOM / BED: / AGE / SEX: 79 / F ADM STATUS: REG ER SERVICE 1042 ORDERING PHYSICIAN: ERMA NEVILLE MD PROCEDURE(s): CXRP - CHEST PORTABLE REASON: low oxygen ORDER NUMBER(s): [id number], ACCESSION NUMBER(s): [id number] CHEST RADIOGRAPH Indication: low oxygen Technique: Single frontal view of the chest was obtained COMPARISON: Chest x-ray on 02/04/23 FINDINGS: Lines and Tubes: None Lungs: Mild interstitial prominence in the setting of low lung volumes, particularly in the right lower lung. Pleura: No effusion. No pneumothorax. Cardiomediastinal contours: Unremarkable Bones: Mild degenerative changes of the shoulders, ehtse-oyxjade-ifvs-left. IMPRESSION: Mild interstitial prominence likely represents bronchovascular crowding in the setting of low lung volumes. It is difficult to exclude mild superimposed atelectasis or pneumonia in the right lower lung. Consider follow-up radiographs if symptoms persist. ATED BY: VICKEY PALUMBO DO DICTATED DATE/TIME: 07/16/241121 SIGNED BY: VICKEY PALUMBO DO SIGNED DATE/TIME: 07/16/24 112 CC: [address] [id number] Ph: [phone] DIAGNOSTIC IMAGING Diagnostic Imaging Report : [id number] Signed PATIENT: ROBINSON MEJIA ACCT: [id number] UNIT: [id number] : 1945 LOC: OVERFLOW ROOM / BED: 1009ER / A AGE / SEX: 79 / F ADM STATUS: ADM IN SERVICE 1313 ORDERING PHYSICIAN: ERMA NEVILLE MD PROCEDURE(s): CTACH - CT ANGIO CHEST CONTRAST REASON: CP ORDER NUMBER(s): [id number], ACCESSION NUMBER(s): [id number] Procedure: CT CT ANGIO CHEST CONTRAST Reason for study/Clinical History: CP Comparison Study: None available at time of dictation. Exam Date: 07/16/2024 03:50 PM Radiation Dose Information: CT Dose: CTDI volume is 17.76 mGy. Dose-length product is 335.1 mGy*cm Contrast: Type of contrast: Omnipaque 350 Contrast inject: 100 mL Contrast wasted:0 TECHNIQUE: After the uneventful administration of intravenous contrast intravenously, CT imaging was performed through the chest. Coronal and sagittal reformations were performed by the technologist. MIP reformatted images were obtained and evaluated. FINDINGS: Lower Neck: Visualized portions of the thyroid gland are unremarkable. Aorta and Vasculature: Normal caliber of thoracic aorta. Lymph Nodes: No enlarged intrathoracic lymph nodes. Mediastinum: Heart size is normal. There is no pericardial effusion. The esophagus is unremarkable. Lungs: No focal consolidation, pleural effusion or significant pneumothorax. No suspicious pulmonary nodule or mass. Musculoskeletal: No acute osseous abnormality. Upper abdomen: Limited portions of the upper abdomen are unremarkable. IMPRESSION: 1. No evidence of acute intrathoracic abnormality identified. 2. No findings of pulmonary emboli. 3. No findings of pulmonary artery hypertension. All CT scans at this medical facility are performed using dose modulation techniques as appropriate to a performed exam including the following: Automated exposure control was utilized; adjustment of the MA and/or KV according to patient size; and use of iterative reconstruction technique. ATED BY: LUCA GUSMAN Jr., DO DICTATED DATE/TIME: 07/16/24 1630 SIGNED BY: LUCA GUSMAN Jr., SIGNED DATE/TIME: 07/16/24 1630 CC: Condition at Discharge: Stable Final Diagnosis/Problems List Possible viral Pneumonia versus Gram-positive/Gram-negative bacteria pneumonia Acute hypoxic respiratory failure Leukopenia Rheumatiod arthritis Thrombocytopenia Influenza type a positive Hypokalemia Hypothyroidism UTI CIARA due to vmn Discharge Disposition: Home Discharge Instruct/Medications Diet: Regular Activity: No Restrictions, As Tolerated Follow Up/Referral: Follow up in this clinic in one week Medications: Continue home medications as prescribed cefpodoxime, azithromycin, Ventolin as a rescue inhaler Discharge Statement: "Patient was advised to return to the ER or call 911 if any headaches, dizziness, shortness of breath, chest pain, abdominal pain, bleeding, fevers, or worsening of medical condition. Patient was counseled about treatment plan, medications, possible side effects, patientverbalized understanding. All questions were answered to the best of my ability. This discharge took greater then 30 minutes in planning, reviewing documentation, counseling the patient, and discussing with other team members." ASSESSMENT ASSESSMENT Assessment Pneumonia Addendum Addendum Addendum I was physically present for the kee portions of the service provided to patient by THE RESIDENT. I have reviewed the documentation, discussed the case with resident and agree with the resident's documentation except as noted. Also the patient's clinical case was discussed with the patient's nurse. This medical document was created using an electronic medical record system with computerized dictation system. Although this document has been carefully reviewed, there might still be some phonetic and typographical errors. These areas are purely typographical due to imperfections of the software programs, and do not reflect any compromise in the patient's medical care. Late signature. Date of Service: Jul 18, 2024 Billing Provider: MIGUELANGEL ELIZABETH MD Common Visit Codes: 93378-JKZ/OBS DISCH DAY >30min MARISOL CRUZ RESIDENT Jul 18, 2024 13:31 MIGUELANGEL ELIZABETH MD Jul 19, 2024 05:59
[2024-07-18 15:04] VITALS: TEMP 36.6
--- NOTE | 2024-07-19 08:54 | ECG ---
[facility] Test Date: 2024-07-17 Test Time: 15:17:25 Pat Name: ROBINSON MEJIA Department: Respiratoy Room: 0201 A Gender: F Qc Manager: KULDIP : 1945 Requested By: ROBIN ESCALERA Order Number: [id number] Reading MD: Paulina Marinelli Measurements Intervals [place] Rate: 65 P: 48 UT: 119 QRS: -14 QRSD: 87 T: 62 QT: 411 QTc: 428 Interpretive Statements Sinus rhythm Borderline short UT interval Low voltage, extremity leads Electronically Signed On 07-20-2024 9:08:50 PST by Paulina Marinelli Please click the below link to view image of tracing.
== END 2024-07-18 16:10 | disposition home or self-care (01) | DRG 177 ==
LOC: ER 10:25 → OVERFLOW 12:49 → CENTRAL 13:01
PROVIDERS: ADMIT Internal Medicine; ATTEND Internal Medicine
DX: J15.69 Pneumonia due to other Gram-negative bacteria (principal); J96.01 Acute respiratory failure with hypoxia; N17.0 Acute kidney failure with tubular necrosis; N39.0 Urinary tract infection, site not specified; J15.9 Unspecified bacterial pneumonia; J10.08 Influenza due to other identified influenza virus with other specified pneumonia; I10 Essential (primary) hypertension; E87.6 Hypokalemia; D69.6 Thrombocytopenia, unspecified; M06.9 Rheumatoid arthritis, unspecified; D72.819 Decreased white blood cell count, unspecified; E03.9 Hypothyroidism, unspecified; Z20.822 Contact with and (suspected) exposure to COVID-19; Z83.3 Family history of diabetes mellitus; Z79.899 Other long term (current) drug therapy
CPT/HCPCS: 36415; 83880; 85025; 93005; 96365; 99291; G0378; G9035

== ENCOUNTER → 2024-08-21 | Outpatient (CLI) | payer OTHER ==
[~2024-08-21] MED LIST changes: +ALBUAER3 IN; +AZIT-43 PO; +BUDE1AER5 IN; +CEFP200T15 PO; +DEXT1SYP9 PO; +MONT-8 PO; +SUCR1TAB PO; +TAMIF30 PO
[2024-08-21 10:51] LABS: Alanine Aminotransferase 17 U/L (7-40); Alkaline Phosphatase 108 U/L (46-116); Anion Gap 6 (5-15); BUN/Creatinine Ratio 16.7 (10.0-20.0); Blood Urea Nitrogen 13 mg/dL (9-23); Calcium 10.2 mg/dL (8.7-10.4); Carbon Dioxide 30 mmol/L (20-31); Glucose 97 mg/dL (74-106); Potassium 4.4 mmol/L (3.5-5.1); Sodium 145 mmol/L (136-145)
[2024-08-21 10:52] LABS: Aspartate Aminotransferase 20 U/L (13-40); CRP High Sensitivity 0.05 mg/dL (<1.0)
[2024-08-21 10:53] LABS: Albumin 4.2 g/dL (3.2-4.8); Bilirubin, Total 0.9 mg/dL (0.2-1.0); Creatine Kinase IFCC 57 U/L (34-145); Total Protein 6.5 g/dL (5.7-8.2)
[2024-08-21 11:00] LABS: Chloride 109 mmol/L (98-107)
[2024-08-21 11:24] LABS: Basophils # (auto) 0 10 ^3/uL (0-0.2); Basophils % (auto) 0.6 % (0.0-2.0); Eosinophils # (auto) 0.1 10 ^3/uL (0-0.8); Eosinophils % (auto) 1.7 % (0.0-7.0); Hematocrit 41.2 % (36.0-46.0); Hemoglobin 13.7 g/dL (12.2-16.2); Lymphocytes # (auto) 0.9 10 ^3/uL (0.4-5.4); Lymphocytes % (auto) 18.4 % (10.0-50.0); Mean Corpuscular Hemoglobin 30.2 pg (28.0-32.0); Mean Corpuscular Hgb Conc. 33.4 g/dL (32.0-36.0); Mean Corpuscular Volume 90.4 fL (80.0-100.0); Monocytes # (auto) 0.4 10 ^3/uL (0-1.3); Monocytes % (auto) 8.7 % (0.0-12.0); Neutrophils # (auto) 3.6 10 ^3/uL (1.6-8.6); Neutrophils % (auto) 70.6 % (37.0-80.0); Nucleated Red Blood Cells % 0.2 %; Platelet Count (auto) 189 10^3/uL (140-450); Red Blood Cells 4.55 10^6/uL (4.0-5.20); Red Cell Distribution Width 16.1 % (11.8-14.3); White Blood Cell 5.1 10^3/uL (4.4-10.8)
[2024-08-21 11:32] LABS: Protein, Urine 17.5 mg/dL (1-14)
[2024-08-21 11:33] LABS: Creatinine, Urine 184.45 mg/dL (30.0-125.0); Urine Protein/Creatinine Ratio 0.09
[2024-08-21 13:06] LABS: Erythrocyte Sedimentation Rate 7 mm/hr (0-20)
== END | disposition home or self-care (01) ==
LOC: LAB 09:55
PROVIDERS: ATTEND Internal Medicine Rheumatology
DX: E55.9 Vitamin D deficiency, unspecified (principal); M34.9 Systemic sclerosis, unspecified; Z79.899 Other long term (current) drug therapy
CPT/HCPCS: 36415; 80053; 82306; 82550; 82570; 84156; 85025; 85652; 86141

== ENCOUNTER → 2024-12-02 | Outpatient (CLI) | payer OTHER ==
[~2024-12-02] MED LIST changes: +ALBUTEROL SULF 2.5 MG/0.5ML(0.5%) NEB SOLN ONE
== END | disposition home or self-care (01) ==
LOC: RT 08:43
PROVIDERS: ATTEND Internal Medicine Pulmonary Disease
DX: R06.09 Other forms of dyspnea (principal); R05.3 Chronic cough
CPT/HCPCS: 94060; 94727; 94729

== ENCOUNTER → 2025-01-06 | Outpatient (CLI) | payer OTHER ==
[~2025-01-06] MED LIST changes: -ALBUTEROL SULF 2.5 MG/0.5ML(0.5%) NEB SOLN ONE
[2025-01-06 10:03] LABS: Basophils # (auto) 0 10 ^3/uL (0-0.2); Basophils % (auto) 0.4 % (0.0-2.0); Eosinophils # (auto) 0.1 10 ^3/uL (0-0.8); Eosinophils % (auto) 1.7 % (0.0-7.0); Hematocrit 40.5 % (36.0-46.0); Hemoglobin 13.2 g/dL (12.2-16.2); Lymphocytes # (auto) 0.9 10 ^3/uL (0.4-5.4); Lymphocytes % (auto) 18.9 % (10.0-50.0); Mean Corpuscular Hemoglobin 28.3 pg (28.0-32.0); Mean Corpuscular Hgb Conc. 32.5 g/dL (32.0-36.0); Mean Corpuscular Volume 86.9 fL (80.0-100.0); Monocytes # (auto) 0.4 10 ^3/uL (0-1.3); Monocytes % (auto) 8.2 % (0.0-12.0); Neutrophils # (auto) 3.3 10 ^3/uL (1.6-8.6); Neutrophils % (auto) 70.8 % (37.0-80.0); Nucleated Red Blood Cells % 0.1 %; Platelet Count (auto) 194 10^3/uL (140-450); Red Blood Cells 4.66 10^6/uL (4.0-5.20); Red Cell Distribution Width 17.2 % (11.8-14.3); White Blood Cell 4.7 10^3/uL (4.4-10.8)
[2025-01-06 10:15] LABS: Alanine Aminotransferase 18 U/L (7-40); Albumin 4.4 g/dL (3.2-4.8); Alkaline Phosphatase 105 U/L (46-116); Anion Gap 6 (5-15); Aspartate Aminotransferase 20 U/L (13-40); BUN/Creatinine Ratio 21.1 (10.0-20.0); Blood Urea Nitrogen 16 mg/dL (9-23); Calcium 10.1 mg/dL (8.7-10.4); Carbon Dioxide 30 mmol/L (20-31); Chloride 109 mmol/L (98-107); Glucose 98 mg/dL (74-106); Potassium 4.6 mmol/L (3.5-5.1); Sodium 145 mmol/L (136-145); Total Protein 6.7 g/dL (5.7-8.2)
[2025-01-06 10:16] LABS: Bilirubin, Total 0.9 mg/dL (0.2-1.0)
== END | disposition home or self-care (01) ==
LOC: LAB 09:33
PROVIDERS: ATTEND Internal Medicine Rheumatology
DX: M05.79 Rheumatoid arthritis with rheumatoid factor of multiple sites without organ or systems involvement (principal); Z79.899 Other long term (current) drug therapy
CPT/HCPCS: 36415; 80053; 85025

== ENCOUNTER → 2025-03-05 | Outpatient (CLI) | payer OTHER ==
[2025-03-05 09:49] LABS: Hematocrit 41.1 % (36.0-46.0); Hemoglobin 13.2 g/dL (12.2-16.2); Mean Corpuscular Hemoglobin 27.9 pg (28.0-32.0); Mean Corpuscular Volume 86.8 fL (80.0-100.0); Nucleated Red Blood Cells % 0.0 %
[2025-03-05 10:18] LABS: Alanine Aminotransferase 15 U/L (7-40); Alkaline Phosphatase 95 U/L (46-116); Anion Gap 8 (5-15); Calcium 10.0 mg/dL (8.7-10.4); Carbon Dioxide 28 mmol/L (20-31); Glucose 90 mg/dL (74-106); Potassium 3.9 mmol/L (3.5-5.1)
[2025-03-05 10:19] LABS: BUN/Creatinine Ratio 15.4 (10.0-20.0); Blood Urea Nitrogen 12 mg/dL (9-23); Total Protein 6.4 g/dL (5.7-8.2); Triglycerides 103 mg/dL (< 150); Urine Protein, UAD Negative (Negative)
[2025-03-05 10:20] LABS: Albumin 4.3 g/dL (3.2-4.8); Chloride 110 mmol/L (98-107); Sodium 146 mmol/L (136-145)
[2025-03-05 10:21] LABS: Bilirubin, Total 0.9 mg/dL (0.2-1.0); Cholesterol 159 mg/dL (< 200); HDL Cholesterol 43 mg/dL (40-59)
[2025-03-06 08:07] LABS: Free Thyroxine Index 3.2 (1.2-4.9)
== END | disposition home or self-care (01) ==
LOC: LAB 09:14
PROVIDERS: ATTEND Internal Medicine
DX: E03.9 Hypothyroidism, unspecified (principal); N39.0 Urinary tract infection, site not specified; J45.991 Cough variant asthma; R53.83 Other fatigue
CPT/HCPCS: 36415; 80053; 80061; 81001; 82306; 82607; 82746; 84425; 84443; 85025; 87086

== ENCOUNTER 2025-06-17 09:35 | Outpatient (CLI) | payer OTHER ==
[2025-06-17 09:52] LABS: Hematocrit 39.7 % (36.0-46.0); Hemoglobin 12.9 g/dL (12.2-16.2); Mean Corpuscular Hemoglobin 27.6 pg (28.0-32.0); Mean Corpuscular Volume 84.8 fL (80.0-100.0); Nucleated Red Blood Cells % 0.1 %
[2025-06-17 11:12] LABS: Alanine Aminotransferase 18 U/L (7-40); Albumin 4.2 g/dL (3.2-4.8); Alkaline Phosphatase 96 U/L (46-116); Anion Gap 9 (5-15); BUN/Creatinine Ratio 10.8 (10.0-20.0); Blood Urea Nitrogen 11 mg/dL (9-23); Calcium 9.1 mg/dL (8.7-10.4); Carbon Dioxide 28 mmol/L (20-31); Glucose 84 mg/dL (74-106); Potassium 4.5 mmol/L (3.5-5.1); Sodium 145 mmol/L (136-145); Total Protein 6.8 g/dL (5.7-8.2)
[2025-06-17 11:13] LABS: Bilirubin, Total 0.8 mg/dL (0.2-1.0)
[2025-06-17 11:49] LABS: Chloride 108 mmol/L (98-107)
== END 2025-06-17 17:00 | disposition home or self-care (01) ==
LOC: LAB 09:35
PROVIDERS: ATTEND Internal Medicine Rheumatology
DX: E55.9 Vitamin D deficiency, unspecified (principal); M05.79 Rheumatoid arthritis with rheumatoid factor of multiple sites without organ or systems involvement; Z79.899 Other long term (current) drug therapy
CPT/HCPCS: 36415; 80053; 82306; 85025; 85652; 86141